=== PATIENT | male | born 1960 | race Caucasian/White ===

== ENCOUNTER 2017-05-19 07:49 | Emergency (ER) | payer BC, SELFPAY ==
[2017-05-19 07:51] VITALS: BP 187/93; PULSE 84; RESP 16; TEMP 36.3; O2SAT 98; BMI 30.4
[2017-05-19 07:59] VITALS: BP 160/104; PULSE 81; RESP 15; O2SAT 97
--- NOTE | 2017-05-19 08:16 | ED.VISSUMM ---
- ER Visit Summary Date of Service: 05/19/17 Chief Complaint: Left arm pain History of Present Illness: The patient is a 57 M who presents with left arm pain. He is complained of a constant pain in his left arm radiating down to his fingers for the past 3-4 days. This is worsened by pushing or pulling laying flat on his back or using his left arm. He also notes some numbness and tingling in his index and middle finger over the past day and a half. He states he was told that he has spurring and his upper back. He was told that this would likely cause problems later in life. He believes that his symptoms are related to his neck. However when his employer heard about his left arm pain he was concerned for cardiac etiology and patient was advised to be evaluated here in the emergency department. The patient has no chest pain or shortness of breath. No lightheadedness. 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 He has a known history of some spurring in his upper back or lower neck. It is worsened by certain positions. He has some paresthesias in the C7 distribution. At this time he has no motor deficits. She was given a prescription for prednisone and Mobic, he does not want any opiate analgesics. Patient instructed on specific signs and symptoms to monitor for and conditions under which to return to the emergency department. He will call his 's physician to establish a primary care physician in follow-up. All questions answered at bedside. Patient agreeable to plan. Patient discharged. Treatment Plan: [] Disposition: Discharge Impression: Cervical radiculopathy This note was generated with [employer] dictation software. It may contain incorrect words, spelling, and punctuation that were not noted in review of the chart prior to signing ED Disposition - Plan for ED Patient: Chief Complaint: Upper Extremity Injury Referrals: Care Physician,No Primary [Primary Care Provider] -
--- NOTE | 2017-05-19 08:23 | ED.DCSUM_ITS ---
- ER Visit Summary Date of Service: 05/19/17 Chief Complaint: Left arm pain History of Present Illness: The patient is a 57 M who presents with left arm pain. He is complained of a constant pain in his left arm radiating down to his fingers for the past 3-4 days. This is worsened by pushing or pulling laying flat on his back or using his left arm. He also notes some numbness and tingling in his index and middle finger over the past day and a half. He states he was told that he has spurring and his upper back. He was told that this would likely cause problems later in life. He believes that his symptoms are related to his neck. However when his employer heard about his left arm pain he was concerned for cardiac etiology and patient was advised to be evaluated here in the emergency department. The patient has no chest pain or shortness of breath. No lightheadedness. 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 He has a known history of some spurring in his upper back or lower neck. It is worsened by certain positions. He has some paresthesias in the C7 distribution. At this time he has no motor deficits. She was given a prescription for prednisone and Mobic, he does not want any opiate analgesics. Patient instructed on specific signs and symptoms to monitor for and conditions under which to return to the emergency department. He will call his 's physician to establish a primary care physician in follow-up. All questions answered at bedside. Patient agreeable to plan. Patient discharged. Treatment Plan: [] Disposition: Discharge Impression: Cervical radiculopathy This note was generated with [employer] dictation software. It may contain incorrect words, spelling, and punctuation that were not noted in review of the chart prior to signing ED Disposition - Plan for ED Patient: Chief Complaint: Upper Extremity Injury Referrals: Care Physician,No Primary [Primary Care Provider] -
--- NOTE | 2017-05-19 08:23 | ED.DEP ---
ED Disposition - Plan for ED Patient: Chief Complaint: Upper Extremity Injury Instructions: ED Cervical Radiculopathy Prescriptions: Meloxicam [Mobic] 7.5 mg PO DAILY #14 tab Prednisone [Deltasone] 60 mg PO DAILY #15 tab Referrals: Care Physician,No Primary [Primary Care Provider] -
[2017-05-19 08:34] VITALS: BP 164/75; PULSE 84; RESP 18; O2SAT 100
--- NOTE | 2017-05-19 08:35 | ED.RN ---
THIS NURSE REVIEWED D/C INSTRUCTIONS WITH PT. PT VERBALIZED UNDERSTANDING OF INSTRUCTIONS. PT DENIES FURTHER NEEDS OR QUESTIONS AT THIS TIME. PT AMBULATES FROM ROOM ON OWN WITHOUT ASSISTANCE FROM STAFF
--- NOTE | 2017-05-19 08:36 | EKG12_ITS ---
Test Reason : LEFT SHOULDER PAIN Blood Pressure : / mmHG Vent. Rate : 077 BPM Atrial Rate : 077 BPM P-R Int : 188 ms QRS Dur : 102 ms QT Int : 360 ms P-R-T Axes : 070 -28 -04 degrees QTc Int : 407 ms Normal sinus rhythm Nonspecific ST abnormality Abnormal ECG Confirmed by ALANNA PHIPPS, LOLY ([id number]), slot editor SALOMON ART ([id number]) on 05/20/2017 2:21:09 PM Referred By: CAROLINA Confirmed By:LOLY MONDRAGON MD
== END 2017-05-19 08:37 | disposition home or self-care (01) ==
LOC: ED 08:21
PROVIDERS: Emergency Provider Emergency Medicine
DX: M54.12 Radiculopathy, cervical region (principal); Z72.0 Tobacco use
CPT/HCPCS: 93005; 99282

== ENCOUNTER 2017-05-25 17:30 | Emergency (ER) | payer BC, SELFPAY ==
[2017-05-25 17:31] VITALS: BP 193/92; PULSE 71; RESP 14; TEMP 37; O2SAT 97; BMI 31.8
--- NOTE | 2017-05-25 19:45 | ED.VISSUMM ---
- ER Visit Summary Date of Service: 05/25/17 Chief Complaint: Neck pain radiating down to his left hand with numbness in the left index and long finger. History of Present Illness: The patient is a 57 M no significant past medical or surgical history. No prior spine surgery. Patient has had neck pain intermittently for over a year. Has become more constant the last several weeks. It radiates down the back of his left arm and causes numbness and tingling in his left index and long finger. He is right-hand dominant. He denies any weakness. He denies any involvement to the right side or his left leg. He was seen in the ER a week or 2 ago was diagnosed with cervical radiculopathy. Placed on prednisone and meloxicam which have not given him any significant relief. He has an upcoming appointment with orthopedics in about 2 weeks. Physical Examination: Appearing middle-aged male. Vital signs are stable afebrile. No acute distress. HEENT exam unremarkable. No droop. Normal speech. Neck nontender. Lungs clear to auscultation bilaterally. Heart regular rate and rhythm no murmur. Abdomen soft nontender. Extremities he moves all 4. He has a strong radial pulse. 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 Biceps and triceps strength in the left arm. He has full range of motion the left shoulder, elbow, wrist and fingers. He does describe subjective numbness in the left index and long finger. There is no muscular atrophy. Right upper extremity both lower extremities are unremarkable. Otherwise neurologic exam is normal. Test Results: None Emergency Department Course and Treatment: Because of the patient is a cervical radiculopathy. This may be secondary to a disc or some other anatomical abnormalities causing nerve impingement. He understands this. He will continue on his prednisone and meloxicam. He understands he needs an MRI of the cervical spine. And may need to follow-up with an orthopedic spine or neurosurgeon. Treatment Plan: [place] for pain 30 no refill. Disposition: ct Impression: Cervical radiculopathy with left long and index finger numbness This note was generated with [employer] dictation software. It may contain incorrect words, spelling, and punctuation that were not noted in review of the chart prior to signing ED Disposition - Plan for ED Patient: Chief Complaint: Other, Pain/Inj Referrals: Care Physician,No Primary [Primary Care Provider] -
[2017-05-25] MEDS: HYDROcodone Bitartrate/Apap 5/325 Tablet PO (19:49)
--- NOTE | 2017-05-25 19:49 | ED.DCSUM_ITS ---
- ER Visit Summary Date of Service: 05/25/17 Chief Complaint: Neck pain radiating down to his left hand with numbness in the left index and long finger. History of Present Illness: The patient is a 57 M no significant past medical or surgical history. No prior spine surgery. Patient has had neck pain intermittently for over a year. Has become more constant the last several weeks. It radiates down the back of his left arm and causes numbness and tingling in his left index and long finger. He is right-hand dominant. He denies any weakness. He denies any involvement to the right side or his left leg. He was seen in the ER a week or 2 ago was diagnosed with cervical radiculopathy. Placed on prednisone and meloxicam which have not given him any significant relief. He has an upcoming appointment with orthopedics in about 2 weeks. Physical Examination: Appearing middle-aged male. Vital signs are stable afebrile. No acute distress. HEENT exam unremarkable. No droop. Normal speech. Neck nontender. Lungs clear to auscultation bilaterally. Heart regular rate and rhythm no murmur. Abdomen soft nontender. Extremities he moves all 4. He has a strong radial pulse. 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 Biceps and triceps strength in the left arm. He has full range of motion the left shoulder, elbow, wrist and fingers. He does describe subjective numbness in the left index and long finger. There is no muscular atrophy. Right upper extremity both lower extremities are unremarkable. Otherwise neurologic exam is normal. Test Results: None Emergency Department Course and Treatment: Because of the patient is a cervical radiculopathy. This may be secondary to a disc or some other anatomical abnormalities causing nerve impingement. He understands this. He will continue on his prednisone and meloxicam. He understands he needs an MRI of the cervical spine. And may need to follow-up with an orthopedic spine or neurosurgeon. Treatment Plan: [place] for pain 30 no refill. Disposition: [place] Impression: Cervical radiculopathy with left long and index finger numbness This note was generated with [employer] dictation software. It may contain incorrect words, spelling, and punctuation that were not noted in review of the chart prior to signing ED Disposition - Plan for ED Patient: Chief Complaint: Other, Pain/Inj Referrals: Care Physician,No Primary [Primary Care Provider] -
--- NOTE | 2017-05-25 19:49 | ED.DEP ---
ED Disposition - Plan for ED Patient: Disposition: Home or Assisted Living Chief Complaint: Other, Pain/Inj Instructions: ED Cervical Radiculopathy Prescriptions: Hydrocodone/Acetaminophen [[place] 7.5-325 Tablet] 1 ea PO Q4H PRN PRN #30 tab PRN Reason: Pain Additional Instructions: [place] for pain. Continue the meloxicam and prednisone for inflammation. Follow-up with either orthopedic spine surgeon or a neurosurgeon. Most likely you have something like a disc or bone spur or something else impinging on the nerve coming out of your neck. You will need an MRI of your neck.
[2017-05-25 19:50] VITALS: BP 139/81; PULSE 72; RESP 18; O2SAT 95
--- NOTE | 2017-05-25 19:52 | DCINST.ED_ITS ---
ED Disposition - Plan for ED Patient: Disposition: Home or Assisted Living Chief Complaint: Other, Pain/Inj Instructions: ED Cervical Radiculopathy Prescriptions: Hydrocodone/Acetaminophen [[place] 7.5-325 Tablet] 1 ea PO Q4H PRN PRN #30 tab PRN Reason: Pain Additional Instructions: [place] for pain. Continue the meloxicam and prednisone for inflammation. Follow-up with either orthopedic spine surgeon or a neurosurgeon. Most likely you have something like a disc or bone spur or something else impinging on the nerve coming out of your neck. You will need an MRI of your neck.
== END 2017-05-25 20:00 | disposition home or self-care (01) ==
PROVIDERS: Emergency Provider Emergency Medicine; Family Provider Family Medicine; PCP Family Medicine
DX: M54.12 Radiculopathy, cervical region (principal); R20.0 Anesthesia of skin; Z72.0 Tobacco use
CPT/HCPCS: 99283

== ENCOUNTER → 2017-06-16 17:35 | Outpatient (CLI) | payer BC, SELFPAY ==
--- NOTE | 2017-06-16 18:15 | MRI_ITS ---
STUDY: MRI CERVICAL SPINE WITHOUT CONTRAST REASON FOR EXAM: Male, 57 years old. Neck pain, left shoulder pain and left arm pain. TECHNIQUE: Standardized fat and water weighted pulse sequences were obtained in the sagittal and axial planes. COMPARISON: None FINDINGS: Normal foramen magnum and brainstem-cervical cord junction. Normal craniovertebral junction. Normal anterior atlantoaxial articulation. Normal odontoid process. Normal cervical lordosis. Normal vertebral bodies and posterior osseous elements. C2-3: Normal endplates. Normal disc height, signal and morphology. Normal central canal and intervertebral neural foramina. C3-4: Mild disc desiccation with left mild uncovertebral joint arthropathy and compounding facet arthropathy resulting in mild to moderate left foraminal narrowing. C4-5: Disc desiccation with no significant spinal canal narrowing or foraminal narrowing. C5-6: Decreased disc space and disc osteophyte complex effacing the thecal sac with compounding minimal uncovertebral joint arthropathy resulting in minimal bilateral foraminal narrowing. C6-7: Decreased disc space and disc osteophyte complex eccentric to the right resulting in mild to moderate right foraminal narrowing. There is compounding left facet arthropathy and uncovertebral joint arthropathy resulting in moderate to severe left foraminal narrowing. C7-T1: Normal endplates. Normal disc height, signal and morphology. Normal central canal and intervertebral neural foramina. Normal cervical cord. Normal visualized soft tissue structures. MRI/Spine Cervical (Routine) IMPRESSION: 1. C6-7 degenerative disc changes and disc osteophyte complex with compounding facet arthropathy and uncovertebral joint arthropathy resulting in moderate to severe left and mild to moderate right foraminal narrowing. Clinically correlate for C6/7 radiculopathy. 2. C3/4 left uncovertebral joint arthropathy resulting in mild to moderate foraminal narrowing. Additional degenerative changes as above. Electronically Signed: Ashok Crespo DO at 23:57 EDT , Service support ,
== END ==
PROVIDERS: Family Provider Family Medicine; PCP Family Medicine; Visit Provider Family Medicine
DX: M54.12 Radiculopathy, cervical region (principal)
CPT/HCPCS: 72141

== ENCOUNTER 2017-09-16 18:30 | Outpatient (RCR) | payer BC, SELFPAY ==
--- NOTE | 2017-07-15 19:12 | HP.PTEVAL ---
Patient's Visit Information MIGUE BURT is a 57 year old M referred to Physical Therapy by Alexis Case DO with a diagnosis of cervical radiculopathy. Date of Evaluation: 07/15/17 Physical Therapist: Maricruz Eagle - Visit Plan Frequency: 2x /Week Duration: 4 Weeks Plan: 2X/ week to decrease pain with light ROM, strengthening and modalities and postural exercises with HEP - Subjective Subjective: Pt reports that he has been dealing with this for several years and he thought was a bone spur turns out that arthrisi is building up around the nerve. He has been keeping busy moving. 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 He did this without moving his neck. and he was doing this for a couple of moonths. He started feeling the pain down the arm and his first 2 fingers he has pain and loss of feeling and pain in forearm and into shoulder and shoulder blade and neck on the L side. He went to the ER ( about a month ago with in a week of each other) after things were getting worse and his BP was martha high due to the pain. He was prescribed 30 pain pills and he has 3 left and has been stretching them out. After 2 ER visits (ruled out [place]) and saw Dr Case with MRI and has arthritis between C6-C7 disc. wants PT and he has already set pt up with a spinal surgeon next month August 05, 2017 (Dr Jordan). Pt reports that he feels that movement has helped him and he avoids using his L arm as much as possible. He has been wearing a rubberized glove on the L because he was dropping bundles cause he can not see of feel his 2 fingers on the L hand. He is now moved to another station where he does not move his neck and his neck feels locked up on him and his fingers are trying to hurt again and the shoulder blade pain is back, he is unable to turn neck to the L. He feels that he has weakness in his L arm and with fatigue he gets sharp pains and then his arm will drop things. Top of his hand is cold. Fingers are contstanly tingling and ache. Pt wakes up early due to pain and tries to find another way to sleep. He has experienced dizziness through this pain. Tried Chiropractor and was not getting anywhere. Pt reports that he has been having leg weakness and cramping in his legs and they get extremely severe and they can lock him up. He reports that he has been having some LOB lately too. He has been getting legs that lock up and shooting pain down his legs and that is why he is sometimes wobbly. Pt reports that Dr is unaware of the LE issues. 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 Bicep reflex on the R 2+/3 and L 2+/3. First 2 fingers on the L hand are numb and each time he moves them they become tingling. C-spine AROM: Rot R 75%, Rot L 25%, R SB 75% and L SB 25%, flex 75% and ext 25% normal ROM. UE MMT: R Shld flex, abd ER and IR 4/5 and L shld flex and abd 4-/5, L ER 4-/5 and L IR 3+/4, R wrist flex and ext on the R 4+/5 and L 3+/5. Posture: flexed c-spine, rounded shoulers. - Goals Goal 1:: I HEP Goal Time Frame: 4-6 Weeks Goal 2:: Decrease pain to 3/10 after work day Goal Time Frame: 4-6 Weeks Goal 3:: Increase c-spine by 25% each direction Goal Time Frame: 4-6 Weeks Goal 4:: Sit with upright posture during treatment sessions Goal Time Frame: 4-6 Weeks - Rehabilitation Potential Rehabilitation Potential: Fair - Anticipated Interventions Patient/Client Instruction: Educate patient on: Condition, Plan of Care For the Purpose of:: To decrease pain, To increase ROM, To improve nutrient delivery to tissue, To improve muscle performance and motor function, To improve ability to perform ADL's, To increase tolerance to activity/condition/position, To improve performance and independence with ADL's, To improve health of tissue Therapeutic Exercise to Include: Strength training, Flexibilty training, Gait and locomotor training, Neuromotor development, Passive ROM, Active ROM For the Purpose of:: To decrease pain, To decrease swelling/inflammation, To increase ROM, To improve nutrient delivery to tissue, To improve muscle performance and motor function, To improve ability to perform ADL's, To increase tolerance to activity/condition/position, To increase flexibility/ROM Manual Therapy Techniques to Include: Massage, Soft tissue mobilization For the Purpose of:: To decrease pain, To decrease swelling/inflammation, To increase ROM, To improve nutrient delivery to tissue, To improve muscle performance and motor function IF ES: Yes Cryotherapy (ice pack, ice massage): Yes Thermo therapy (hot pack): Yes Ultrasound (thermal/non thermal): Yes For the Purpose of:: To decrease pain, To decrease swelling/inflammation, To increase ROM, To improve nutrient delivery to tissue Thank you for the opportunity to evaluate your patient. For Medicare and Medicare HMO plans, please review the plan of care and approve it. It will need to be FAXED BACK to us at [phone] for Medicare purposes. Please let me know if there are questions or concerns regarding this plan of care. Physician Signature: Date:
--- NOTE | 2017-09-16 18:52 | HP.PTDCSUM ---
HP - PT D/C Summary It has been my pleasure to treat MIGUE BURT under orders from Alexis Case DO, for the diagnosis of cervical radiculopathy for a total of 14 visit(s). Discharge Date: 09/16/17 Please see the following information for a summary of their discharge status. - Subjective Subjective: Pt reports that he is managing ok and changing how he does things at work. He knows that if he works up his pain, he ices, stretches and rests and usually he gets much better the next day. Pt reports that his L eye pain is more constant at this time and he needs to go back to surgeon to get it checked out. Pt feels that the TENS unit has helped him a lot in PT and would like one for home. - Pain Neck pain Pain Intensity (Out of 10): 2 L arm pain Pain Intensity (Out of 10): 0 L hand pain Pain Intensity (Out of 10): 0 R SH Pain Intensity (Out of 10): 0 L SH blade Pain Intensity (Out of 10): 2 - Overall Improvement % Improvement: 60 - Objective Objective/Function: c-spine AROM: flexcion 100%, ext 50%, Rot B 90%, SB R 75 and L 50%. Poature: good posture during treatment sessions - Goals Goal 1:: I HEP Goal Progress: Goal Met Goal 2:: Decrease pain to 3/10 after work day Goal Progress: Progressing Goal 3:: Increase c-spine by 25% each direction Goal Progress: Goal Met Goal 4:: Sit with upright posture during treatment sessions Goal Progress: Goal Met - Plan Plan: DC PT to HEP. Pt to contact physician about L eye pain and the fact that he would like a TENS unit for home. - D/C Information Discharge Comments: DC PT to HEP. If there are questions or concerns regarding this patient's physical therapy, please feel free to call me at [phone]. Thank you for the referral of this patient. Sincerely, Maricruz Eagle
== END 2017-09-16 19:00 | disposition home or self-care (01) ==
LOC: PT 18:30
PROVIDERS: Family Provider Family Medicine; PCP Family Medicine; Visit Provider Family Medicine
DX: M54.12 Radiculopathy, cervical region (principal)
CPT/HCPCS: 97014; 97035; 97110; 97140; 97162; 97530; G0283

== ENCOUNTER 2017-11-22 09:46 | Emergency (ER) | payer BC, SELFPAY ==
[2017-11-22 09:46] VITALS: BP 128/85; PULSE 78; RESP 18; TEMP 36.6; O2SAT 98; BMI 30.4
--- NOTE | 2017-11-22 10:12 | ED.VISSUMM ---
- ER Visit Summary Date of Service: 11/22/17 Chief Complaint: Dental pain History of Present Illness: The patient is a 57 M who presents with dental pain after a fractured right upper incisor 2 days ago. He developed swelling in that region yesterday. No fever or chills no pain on movement of his eyes no vision changes. No sore throat or problems swallowing. Physical Examination: Otherwise unremarkable exam, there is a fractured right upper lateral incisor, he has diffuse decay normal soft palate there is some swelling of the cheek region without any periorbital involvement. Full range of motion of the eye without any pain. Emergency Department Course and Treatment: She will be treated with the biotics, it is Labor Day weekend and cannot see dentist the next 2-3 days but will try in the next week or 2. If his swelling gets worse he understands he needs to return to the emergency department. Disposition: Discharge stable condition Impression: Odontalgia This note was generated with [employer] dictation software. It may contain incorrect words, spelling, and punctuation that were not noted in review of the chart prior to signing ED Disposition - Plan for ED Patient: Disposition: Home or Assisted Living Chief Complaint: Dental Instructions: ED Abscess Dental Prescriptions: Naproxen [Naprosyn] 500 mg PO BID PRN #20 tab Clindamycin [Cleocin] 300 mg PO TID #80 cap Referrals: Alexis Case DO [Primary Care Provider] - 3-5 Days
[2017-11-22 10:32] VITALS: BP 122/78; PULSE 83; RESP 16; O2SAT 98
== END 2017-11-22 10:33 | disposition home or self-care (01) ==
LOC: ED 10:25
PROVIDERS: Emergency Provider Emergency Medicine; Family Provider Family Medicine; PCP Family Medicine
DX: K04.7 Periapical abscess without sinus (principal); K08.89 Other specified disorders of teeth and supporting structures; K02.9 Dental caries, unspecified; S02.5XXA Fracture of tooth (traumatic), initial encounter for closed fracture; X58.XXXA Exposure to other specified factors, initial encounter; Y93.9 Activity, unspecified; Y92.9 Unspecified place or not applicable; Y99.9 Unspecified external cause status; Z72.0 Tobacco use
CPT/HCPCS: 99282

== ENCOUNTER 2018-02-11 20:35 | Emergency (ER) | payer BC, SELFPAY ==
[2018-02-11 20:36] VITALS: BP 169/90; PULSE 83; RESP 16; TEMP 36.7; O2SAT 95; BMI 28.1
--- NOTE | 2018-02-11 21:30 | ED.VISSUMM ---
- ER Visit Summary Date of Service: 02/11/18 Chief Complaint: Patient presents because he is concerned he has the flu. History of Present Illness: The patient is a 58 M who presents with nasal congestion, rhinorrhea, postnasal drainage, sore throat and cough productive of white colored sputum for the past 5 days. He is a smoker. He states he was immunized for the flu. He is concerned he has the flu. He denies fever or chills. He denies sweats. He reports left ear pain that started today. He denies dyspnea or dyspnea on exertion. He denies hemoptysis. He denies pleuritic chest pain. He denies GI symptoms. See written note for complete detail Physical Examination: Vital signs noted and remarkable for blood pressure 169/90. Right TM is retracted. Left TM is bulging and erythematous and consistent with infection. Nares patent with boggy nasal mucosa and clear drainage. Posterior pharynx without erythema XA. Uvula midline. There is postnasal drainage noted. Trach is midline. There is no cervical lymphadenopathy. Heart is regular without murmur, gallop or rub. S1 and S2 are normal. Lungs are clear to auscultation with good movement of air bilaterally. Test Results: None Emergency Department Course and Treatment: Amoxicillin 500 mg and prescription for amoxicillin Treatment Plan: Antibiotics for otitis media. Patient was informed he will have a cough for 4 weeks since he is a smoker. Disposition: Discharged home in stable condition Impression: 1. Acute otitis media suppurativa left initial encounter 2. Acute upper respiratory infection This note was generated with [employer] dictation software. It may contain incorrect words, spelling, and punctuation that were not noted in review of the chart prior to signing ED Disposition - Plan for ED Patient: Disposition: Home or Assisted Living Chief Complaint: Ear Problem Instructions: ED Otitis Media Acute Adult Prescriptions: Amoxicillin [Amoxil] 500 mg PO Q8H #30 cap Referrals: Alexis Case DO [Primary Care Provider] - 1 Week if not improving Additional Instructions: It is in your best interest to stop smoking
[2018-02-11] MEDS: AMOXICILLIN 500 MG CAPSULE PO (21:46)
[2018-02-11 21:47] VITALS: BP 151/98; PULSE 80; RESP 18; O2SAT 97
== END 2018-02-11 21:48 | disposition home or self-care (01) ==
PROVIDERS: Emergency Provider Emergency Medicine; Family Provider Family Medicine; PCP Family Medicine
DX: J06.9 Acute upper respiratory infection, unspecified (principal); H66.002 Acute suppurative otitis media without spontaneous rupture of ear drum, left ear; R03.0 Elevated blood-pressure reading, without diagnosis of hypertension; F17.200 Nicotine dependence, unspecified, uncomplicated
CPT/HCPCS: 99283

== ENCOUNTER 2018-06-20 13:05 | Emergency (ER) | payer OTHER, SELFPAY ==
[2018-06-20 13:06] VITALS: BP 137/69; PULSE 73; RESP 22; TEMP 36.2; O2SAT 100; BMI 28.8
--- NOTE | 2018-06-20 13:27 | RAD_ITS ---
STUDY: X-RAY - RIGHT WRIST REASON FOR EXAM: Male, 58 years old. Dropped saw on wrist, laceration TECHNIQUE: 3 view(s) of the wrist were obtained. COMPARISON: None. FINDINGS: Normal visualized distal radius and ulna. Normal radiocarpal articulation. Normal distal radioulnar articulation. Normal carpal bones. Normal carpal articulations. Normal carpometacarpal articulation of the thumb. Normal second through fifth carpometacarpal articulations. Normal visualized metacarpal bones. The soft tissue structures are unremarkable. RAD/Wrist min 3 Views IMPRESSION: No fracture or malalignment. Electronically Signed: Elieser Frost MD at 14:10 EDT , Service support ,
--- NOTE | 2018-06-20 13:29 | ED.VIS.UPPEX ---
History of Present Illness Chief Complaint: Laceration Informant: Patient Occurred: Today, Hours - 5-6 Context: Sudden Onset Timing: Continuous Quality of Pain: Aching - and sore Location: right dorsal wrist, and just distal into hand near thumb Current Severity: Moderate Maximum Severity: Moderate Worsened by: moving thumb Relieved by: remaining still Associated Symptoms: Negative for: Parasthesia, Weakness, Loss of Funtion Narrative: Patient states this morning he reached up into his barn and accidentally caught the edge of a saw. He sustained a laceration. He then doused it heavily and hydrogen peroxide, and subsequently started having severe burning pain just distal to the wound into his thumb but mostly at the base of it. Hurts to move his thumb. Tetanus Immunization: >10 years Past Medical History - Allergies and Home Meds Allergies/Adverse Reactions: Allergies No Known Allergies Allergy (Verified 06/20/18 13:08) Primary Care Physician: Alexis Case DO [Primary Care Provider] - Past Medical History: None Smoking Status: Current every day smoker Drugs: None Review of Systems General: Denies: Chills, Fever Musculoskeletal: Reports: Extremity Pain. Denies: Swelling Skin: Reports: Wounds Neurological: Denies: Weakness, Parasthesia, Numbness Physical Exam Vital Signs/Narrative: Vital Signs Temp Pulse Resp BP Pulse Ox 06/20/18 13:06 97.2 F L 73 22 H 137/69 H 100 Inital Vital Signs reviewed: Yes Right Wrist: - - 3 cm full-thickness skin laceration to the subcutaneous tissues, but they are not penetrated. No tendon, nerve, bone, vascular structure visible. No signs of infection. Some scabbing around the skin edges of the laceration.. Negative for: Limited ROM Right Hand: Limited ROM - With regards to right thumb opposition which she is eventually able to do. Tender throughout the soft tissues overlying the thumb metacarpal and just ulnar to this. No subcutaneous emphysema, erythema, lesions on the skin. No fluctuance. No tenderness proximal to the laceration along tendon sheaths, full range of motion of the wrist. General: Well nourished, Well developed Head: Normocephalic, Atraumatic Skin: Normal color, No rash, Trauma - 3 cm linear clean appearing laceration dorsal right wrist Neurological: Alert, Oriented x3, Cranial nerves II-XII grossly intact, Normal Strength, Normal Sensation Diagnostic/Tx/Re-eval Clinical Impression(s) from Imaging Studies Wrist X-Ray 06/20/18 13:27 IMPRESSION: No fracture or malalignment. Electronically Signed: Elieser Frost MD at 14:10 EDT , Service support , - Medical Decision Making There is no evidence of the wound protruding to the fascial layers. I probed it with a sterile swab. I suspect he may have pain distal to the wound because of all of the hydrogen peroxide he used to bathe the wound in. As a precaution, I will place him on prophylactic cephalexin. His tetanus was updated. His wound was cleansed under high-pressure irrigation thoroughly and closed in sterile fashion, suture removal in 10-14 days. He states he will need a light duty slip for tomorrow which is not an issue. He is comfortable with this plan. Procedures - Lacerations right wrist Length: 3 cm Depth: Skin Shape: Linear Prep: Sterile Conditions, Chlorhexadine Laceration Repair: Lidocaine - local Irrigated (ml): 100 Number of Sutures/Young: 3 Suture Information: Ethilon, Horizontal, Mattress, 4-0 ED Disposition - Plan for ED Patient: Disposition: Home or Assisted Living Diagnosis: Laceration of right wrist without complication, Tetanus-diphtheria (Td) vaccination Instructions: ED Laceration Hand Prescriptions: Cephalexin [Keflex] 500 mg PO Q8 #15 cap Referrals: Alexis Case DO [Primary Care Provider] - 10-14 Days suture removal
[2018-06-20] MEDS: Diphth,Pertuss(Acell),Tet Vac 0.5 ML Vial IM (13:38)
[2018-06-20] MEDS: Cephalexin 250 MG Capsule 500 MG PO (13:39)
[2018-06-20 14:59] VITALS: RESP 18
== END 2018-06-20 15:01 | disposition home or self-care (01) ==
PROVIDERS: Emergency Provider Emergency Medicine; Family Provider Family Medicine; PCP Family Medicine
DX: S61.511A Laceration without foreign body of right wrist, initial encounter (principal); W27.0XXA Contact with workbench tool, initial encounter; Y93.9 Activity, unspecified; Y92.71 Barn as the place of occurrence of the external cause; Y99.9 Unspecified external cause status; Z23 Encounter for immunization; F17.210 Nicotine dependence, cigarettes, uncomplicated
CPT/HCPCS: 12002; 73110; 90471; 90715; 99283

== ENCOUNTER 2019-09-20 18:57 | Emergency (ER) | payer OTHER, SELFPAY ==
[2019-09-20 18:58] VITALS: BP 158/97; PULSE 76; RESP 18; TEMP 36.4; O2SAT 98; BMI 29.0
--- NOTE | 2019-09-20 19:08 | RAD_ITS ---
STUDY: X-RAY - PELVIS AND LEFT HIP REASON FOR EXAM: Male, 59 years old. FALL, HIP PAIN. TECHNIQUE: 3 views of the pelvis and hip. COMPARISON: None. FINDINGS: There is a non-specific bowel gas pattern. Normal visualized soft tissue structures. Normal bilateral iliac wings, sacroiliac joints and visualized sacrum. Normal bilateral superior and inferior pubic rami. Normal pubic symphysis. Normal bilateral ischial tuberosities. Normal visualized femoral head. Normal acetabulum. Normal hip joint. RAD/HIP, UNI W/ Pelvis 2-3 Views IMPRESSION: Normal x-ray examination of the pelvis and hip. Electronically Signed: Ozzy Mendosa MD at 20:09 EDT , Service support ,
--- NOTE | 2019-09-20 19:08 | RAD_ITS ---
STUDY: X-RAY - LUMBAR SPINE REASON FOR EXAM: Male, 59 years old. FALL, BACK PAIN. TECHNIQUE: 3 view(s) of the lumbar spine were obtained. COMPARISON: None FINDINGS: Normal lumbar lordosis. There is mild levo scoliosis. There is a normal alignment of the vertebrae. No evidence for acute fracture or subluxation.. Disc space heights are well-maintained although there is minor endplate spurring at T12-L1 and L1-2 The soft tissue structures are unremarkable. RAD/Lumbar Spine 2 or 3 Views IMPRESSION: Mild scoliosis and degenerative change. Electronically Signed: Ozzy Mendosa MD at 20:11 EDT , Service support ,
--- NOTE | 2019-09-20 19:41 | ED.VIS.GEN ---
History of Present Illness Chief Complaint: Lower Extremity Injury Informant: Patient Onset: Today Context: Sudden Onset Timing: Continuous Current Severity: Moderate Maximum Severity: Moderate Narrative: Patient is an otherwise healthy 59-year-old male who presents to the emergency department with left posterior hip and back pain. The patient states he was getting out of the shower this morning. He states when he stepped down, he felt something pop in his left low back around his hip. He states that this is happened before. He went to work and was having some difficulty with gait. He states it was secondary to pain and not weakness. He is had no red flag symptoms. He states that he is gone to the chiropractor before for manipulation, but cannot get in today. He tried to get a medicine ball from the store, but with motion it made his pain worse. Prior similar symptoms: No Recent Illness/Hospitalization: No Past Medical History - Allergies and Home Meds Allergies/Adverse Reactions: Allergies No Known Allergies Allergy (Verified 09/20/19 18:58) Primary Care Physician: Alexis Case DO [Primary Care Provider] - Prior records reviewed: Yes Past Medical History: None Surgical History: noncontributory Smoking Status: Current every day smoker Review of Systems General: Denies: Chills, Fever, Sweats Eyes: Denies: Visual changes - bilaterally, Diplopia ENT: Denies: Rhinorrhea, Sore throat Cardiovascular: Denies: Chest pain, Palpitations Respiratory: Denies: Dyspnea, Cough, Dyspnea on exertion Gastrointestinal: Denies: Abdominal pain, Nausea, Vomiting, Diarrhea, Melena, Hematochezia Genitourinary: Denies: Dysuria, Hematuria, Frequency Musculoskeletal: Reports: Back pain. Denies: Extremity Pain Skin: Denies: Rash, Wounds Neurological: Denies: Headache, Weakness, Numbness Physical Exam Vital Signs/Narrative: Vital Signs Temp Pulse Resp BP Pulse Ox 09/20/19 18:58 97.5 F L 76 18 158/97 H 98 Inital Vital Signs reviewed: Yes General: Well nourished, Well developed, No Acute Distress Head: Normocephalic, Atraumatic Eyes: Perrl, EOMI ENT: Moist mucous membranes, No rhinorrhea Neck: Supple, Nontender Cardiovascular: Regular rate, Regular rhythm, No murmurs Respiratory: No distress, CTA bilaterally, Chest nontender Abdomen: Soft, Nontender, Nondistended, Normal bowel sounds Back: Normal Inspection, - - Tender in the left SI joint. No deformity. No pain with logroll. Normal pulses in lower extremities.. Negative for: Spinal tenderness Extremities: Nontender, No edema Skin: Normal color, No rash Neurological: Alert, Oriented x3, Cranial nerves II-XII grossly intact, Normal Strength, Normal Sensation Psychological: Normal affect, Normal Mood Diagnostic/Tx/Re-eval Clinical Impression(s) from Imaging Studies Hip/Pelvis X-Ray 09/20/19 19:08 IMPRESSION: Normal x-ray examination of the pelvis and hip. Electronically Signed: Ozzy Mendosa MD at 20:09 EDT , Service support , Lumbar Spine X-Ray 09/20/19 19:08 IMPRESSION: Mild scoliosis and degenerative change. Electronically Signed: Ozzy Mendosa MD at 20:11 EDT , Service support , - Medical Decision Making The patient presents with left SI joint pain. He states that he felt like something popped. He has no deformity. He is able to ambulate. His pulses are normal. Is no red flag symptoms. Plain films were obtained of the hip, pelvis, lumbar spine. There is no evidence of acute fracture dislocation. My suspicion if this is likely SI joint pain. I will treat the patient with analgesics and muscle relaxers. He will follow-up with his primary doctor for reevaluation if not improving in the next 48 hours. He will be discharged home. Impression 1. SI joint sprain ED Disposition - Plan for ED Patient: Instructions: ED LUMBAR SPRAIN/STRAIN Prescriptions: cycloBENZAPRine HCl [Flexeril] 10 mg PO TID PRN #20 tab PRN Reason: Muscle Spasm Prescription Printed Hydrocodone Bitart/Apap 5-325 [[place] 5MG-325MG] 1 tab PO Q6H PRN PRN 3 Days #10 tab PRN Reason: Pain Prescription Printed Referrals: Alexis Case DO [Primary Care Provider] -
== END 2019-09-20 20:44 | disposition home or self-care (01) ==
PROVIDERS: Emergency Provider Emergency Medicine; PCP Family Medicine
DX: S33.6XXA Sprain of sacroiliac joint, initial encounter (principal); X58.XXXA Exposure to other specified factors, initial encounter; Y93.E1 Activity, personal bathing and showering; Y92.9 Unspecified place or not applicable; F17.200 Nicotine dependence, unspecified, uncomplicated
CPT/HCPCS: 72100; 73502; 99282

== ENCOUNTER 2019-11-12 15:49 | Emergency (ER) | payer OTHER, SELFPAY ==
[2019-11-12 15:50] VITALS: BP 158/105; PULSE 79; RESP 18; TEMP 37.3; O2SAT 97; BMI 28.5
--- NOTE | 2019-11-12 16:05 | ED.DCSUM_ITS ---
- ER Visit Summary Date of Service: 11/12/19 Chief Complaint: Dental pain History of Present Illness: The patient is a 59 M who presents with upper dental pain that began today. Patient describes the pain is sharp. Patient states the pain is over all of his upper teeth. Patient states the pain radiates into his maxillary sinuses. Patient states he has been using mouthwash with some improvement. Patient states nothing makes it worse. Patient denies any hot or cold sensitivities. Patient missed a subjective fevers at home. Patient admits to some jaw and mild swelling. Patient denies any discharge or drainage. Physical Examination: Vital signs are stable. Patient is afebrile. Patient is in no acute distress. Oral mucosa is pink and moist. Neck is supple. Trachea is midline. There is no JVD or lymphadenopathy. There is no sublingual edema or erythema. There is no evidence of Will's angina. There are multiple dental caries over the upper teeth. There is gingival edema over the upper gingiva. There is no fluctuance. There is no discharge or drainage. Heart was regular rate and rhythm. Lungs are clear and equal bilaterally. Cranial nerves II through XII are intact. There are no focal motor or sensory deficits. Emergency Department Course and Treatment: Patient was given a dose of Pen-Vee K here. Patient was given a prescription for Pen-Vee K. Patient was instructed to follow-up with his dentist as scheduled. Patient was instructed to take Tylenol or ibuprofen as needed for pain. Patient understood and was agreeable with the plan. All questions were answered. Disposition: Discharge home Impression: Infected dental caries This note was generated with [employer] dictation software. It may contain incorrect words, spelling, and punctuation that were not noted in review of the chart prior to signing ED Disposition - Plan for ED Patient: Disposition: Home or Assisted Living Diagnosis: Infected dental caries Instructions: ED CAVITY Dental Referrals: Alexis Case DO [Primary Care Provider] - 3-5 Days
[2019-11-12] MEDS: Penicillin Vk 250 MG Tablet 500 MG PO (16:16)
== END 2019-11-12 16:28 | disposition home or self-care (01) ==
LOC: ED 16:23
PROVIDERS: Emergency Provider Emergency Medicine; PCP Family Medicine
DX: K04.7 Periapical abscess without sinus (principal); K02.9 Dental caries, unspecified; Z72.0 Tobacco use
CPT/HCPCS: 99283

== ENCOUNTER 2020-01-04 17:11 | Emergency (ER) | payer OTHER, SELFPAY ==
[2020-01-04 17:15] VITALS: BP 161/116; PULSE 76; RESP 16; TEMP 36.9; O2SAT 99; BMI 29.6
--- NOTE | 2020-01-04 17:32 | ED.VIS.GEN ---
History of Present Illness Chief Complaint: Shortness of Breath Informant: Patient Onset: Today Context: Gradual Onset Timing: Continuous Current Severity: Mild Maximum Severity: Mild Narrative: The patient is a 59-year-old male with no significant medical history that presents to the emergency department due to COVID concern. Patient states that he has been in his normal state of health until today. He states that he had a scant cough, mild runny nose, and chills. He states that he is been in contact with his sister who was tested yesterday but does not have the results. He has no history of immunosuppression. He does not think he had a fever. He is otherwise been in his normal state of health. Prior similar symptoms: No Recent Illness/Hospitalization: No Past Medical History - Allergies and Home Meds Allergies/Adverse Reactions: Allergies No Known Allergies Allergy (Verified 01/04/20 17:16) Primary Care Physician: Alexis Case DO [Primary Care Provider] - Prior records reviewed: Yes Past Medical History: None Surgical History: noncontributory Smoking Status: Current every day smoker Review of Systems General: Reports: Chills. Denies: Fever, Sweats Eyes: Denies: Visual changes - bilaterally, Diplopia ENT: Reports: Rhinorrhea. Denies: Sore throat Cardiovascular: Denies: Chest pain, Palpitations Respiratory: Reports: Cough. Denies: Dyspnea, Dyspnea on exertion Gastrointestinal: Denies: Abdominal pain, Nausea, Vomiting, Diarrhea, Melena, Hematochezia Genitourinary: Denies: Dysuria, Hematuria, Frequency Musculoskeletal: Denies: Back pain, Extremity Pain Skin: Denies: Rash, Wounds Neurological: Denies: Headache, Weakness, Numbness Physical Exam Vital Signs/Narrative: Vital Signs Temp Pulse Resp BP Pulse Ox 01/04/20 17:15 98.5 F 76 16 161/116 H 99 Inital Vital Signs reviewed: Yes General: Well nourished, Well developed, No Acute Distress Head: Normocephalic, Atraumatic Eyes: Perrl, EOMI ENT: Moist mucous membranes, No rhinorrhea Neck: Supple, Nontender Cardiovascular: Regular rate, Regular rhythm, No murmurs Respiratory: No distress, CTA bilaterally, Chest nontender Abdomen: Soft, Nontender, Nondistended, Normal bowel sounds Back: Nontender, Normal Inspection Extremities: Nontender, No edema Skin: Normal color, No rash Neurological: Alert, Oriented x3, Cranial nerves II-XII grossly intact, Normal Strength, Normal Sensation Psychological: Normal affect, Normal Mood Diagnostic/Tx/Re-eval - Medical Decision Making The patient is very well-appearing. He is not tachypneic, hypoxic, or tachycardic. He has no history of immunosuppression. His lungs are clear. As there is questionable exposure, we will obtain send out COVID testing. The patient will be kept out of work until he is a negative test or cleared by his primary care physician. He is comfortable with this plan of care. Impression 1. Viral illness-upper respiratory ED Disposition - Plan for ED Patient: Instructions: ED Upper Resp Infec No Abx Tx Referrals: Alexis Case DO [Primary Care Provider] -
== END 2020-01-04 18:01 | disposition home or self-care (01) ==
LOC: ED 17:35
PROVIDERS: Emergency Provider Emergency Medicine; PCP Family Medicine
DX: J06.9 Acute upper respiratory infection, unspecified (principal); F17.200 Nicotine dependence, unspecified, uncomplicated
CPT/HCPCS: 87635; 99281; 99283; U0003

== ENCOUNTER → 2020-05-11 06:40 | Outpatient (CLI) | payer OTHER, SELFPAY ==
--- NOTE | 2020-05-11 06:54 | ECHOD_ITS ---
Left Ventricle Normal LV size. Mild concentric left ventricular hypertrophy. The estimated ejection fraction is 53 %. Left ventricular systolic function is lower limits of normal. Stage 1 diastolic dysfunction. No regional wall motion abnormalities noted. Right Ventricle Normal RV size. Normal systolic function. Atria The left atrium is mildly enlarged. Normal right atrium. Mitral Valve Normal mitral valve. Tricuspid Valve Normal tricuspid valve. Aortic Valve Normal aortic valve. Trisinus/trileaflet aortic valve. Pulmonic Valve Normal pulmonic valve. Great Vessels Normal aortic root. The pulmonary artery is normal size. Normal inferior vena cava. Pericardium/Pleural No pericardial effusion. MMode/2D Measurements & Calculations LVIDd: 4.7 cm IVSd: 1.2 cm Ao root diam: 3.7 cm LVIDs: 3.3 cm LVPWd: 1.2 cm RVDd: 3.0 cm FS: 28.1 % LAV(MOD-bp): 83.0 ml LA A4 area: 24.1 cm2 LA dimension(2D): 4.0 cm LAV(MOD-bp) Indexed: 39.4 ml/m2 LAV(MOD-sp2): 69.8 ml LAV(MOD-sp4): 76.8 ml RA A4 area: 14.4 cm2 Time Measurements MV dec time: 0.24 sec Doppler Measurements & Calculations MV E max francois: 60.9 cm/sec Lat Peak E' Francois: 5.6 cm/sec Med Peak E' Francois: 6.0 cm/sec MV A max francois: 92.9 cm/sec E/E' lat: 11.0 E/E' med: 10.1 MV E/A: 0.66 Ao V2 max: 132.5 cm/sec LV V1 max: 96.3 cm/sec PA V2 max: 116.3 cm/sec Ao max P.0 mmHg LV V1 max P.7 mmHg Interpretation Summary Normal LV size. Mild concentric left ventricular hypertrophy. The estimated ejection fraction is 53 %. Left ventricular systolic function is lower limits of normal. Stage 1 diastolic dysfunction. Ordering Physician: Bryan Mckenzie Referring Physician: Bryan cMkenzie
[2020-05-11 11:32] LABS: Hematocrit 42.3 % (40-54); Hemoglobin 14.2 g/dL (13.0-16.5); Mean Corp Hgb Conc 33.6 g/dL (32-36); Mean Corpuscular Hgb 31.9 pg (27.0-32.0); Mean Corpuscular Volume 95.1 fL (80-94); Mean Platelet Vol. 9.9 fl (6.2-12.0); Platelet Count 187 K/mm3 (150-450); RBC Distribution Width CV 12.2 % (11.6-14.6); RBC Distribution Width SD 42.3 fl (35.1-43.9); Red Blood Count 4.45 M/mm3 (4.6-6.2); White Blood Count 5.9 K/mm3 (4.4-11.0)
[2020-05-11 11:58] LABS: ALB/GLOB Ratio 1.1 RATIO (0.9-2.4); AST(SGOT) 26 U/L (15-37); Alanine Aminotransfer ALT/SGPT 49 U/L (16-61); Albumin, Serum 3.8 g/dL (3.2-5.0); Alkaline Phosphatase 95 U/L (45-117); Anion Gap 3 (5-15); BUN 16 mg/dL (7-18); BUN/Creat Ratio 16.5 RATIO (10-20); Calcium,Total 8.9 mg/dL (8.5-10.1); Chloride 107 mmol/L (98-107); Cholesterol 150 mg/dL (200); Creatinine, Serum 0.97 mg/dL (0.70-1.30); EST Glomerular Filtration Rate 85 mL/min (>60); Est Glom Filt Rate - Afr Amer 102 mL/min (>60); Globulin 3.5 g/dL (2.2-4.2); Glucose 85 mg/dL (74-106); High Density Lipoprotein 51 mg/dL; Potassium 4.1 mmol/L (3.5-5.1); Protein, Total 7.3 g/dL (6.4-8.2); Sodium Level 140 mmol/L (136-145); Triglycerides 57 mg/dL; Very Low Density Lipoprotein 11 mg/dL (5-40)
--- NOTE | 2020-05-11 18:13 | STRESSREP_ITS ---
Stress Test Report Exercise myocardial perfusion stress test. 60-year-old man with a history of hypertension and chest pain. Medications amlodipine 10 mg. Stress protocol: Resting EKG demonstrates normal sinus rhythm with a rate of 64 bpm normal intervals are noted resting blood pressure is 162/98 mmHg. The patient exercised according to regular Daljit protocol for total duration of 10 minutes patient completed 1 minute into stage IV of the Daljit protocol the maximum heart rate attained 137 bpm which was 84% of max impacted heart rate the maximum wor kload was 11.7 metabolic equivalents. Patient maintained sinus rhythm throughout the recording. At rest there were no ST or T wave changes noted suggest ischemia peak exercise upsloping ST changes were noted with no meet the criteria for ischemia. The test was terminated due to dyspnea. The resting blood pressure was 162/98 with a peak blood pressure of 220/90 mmHg rate- pressure product was 25,900. No clinical angina was noted. Myocardial perfusion protocol. 14.2 mCi of technetium 99m sestamibi was injected at rest. The patient exercised according to regular Daljit protocol for a total duration of 10 minutes. At peak exercise 44.1 mCi of technetium 99m sestamibi was injected stress images were obtained stress and rest images were reconstructed and compared in the short axis vertical long horizontal long axis. Gated images were also obtained. Perfusion SPECT analysis. Review of the images demonstrate normal uptake of tracer noted in all areas of the myocardium the resting images similarly demonstrate normal uptake of tracer noted in all areas of the myocardium. There is some GI attenuation artifact noted. No obvious reversibility is noted suggest ischemia. Gated SPECT analysis: The gated ejection fraction is estimated at 60%. Conclusion: Normal exercise myocardial perfusion stress test at a high workload. Preserved ejection fraction.
== END ==
PROVIDERS: PCP Student in an Organized Health Care Education/Training Program; Referring Provider Student in an Organized Health Care Education/Training Program; Visit Provider Student in an Organized Health Care Education/Training Program
DX: I16.0 Hypertensive urgency (principal); I10 Essential (primary) hypertension; R06.02 Shortness of breath; R07.9 Chest pain, unspecified; Z76.89 Persons encountering health services in other specified circumstances
CPT/HCPCS: 36415; 78452; 80053; 80061; 85027; 93017; 93306; A9500; A4216